=== PATIENT | male | born 1965 | race Asian ===

== ENCOUNTER 2023-12-31 12:40 | Emergency (ER) | payer OTHER, SELFPAY ==
[2023-12-31] VITALS (10 sets, daily range): BP systolic 114–145; BP diastolic 77–103; BMI 27.9
[2023-12-31] MEDS: NSS 1000 IV (13:18)
[2023-12-31 13:27] LABS: % Basophils 0.7 % (0-2); % Eosinophils 1.1 % (0-6); % Immature Granulocytes 0.6 % (0-0.5); % Lymphocytes 22.6 % (20.5-51.1); % Monocytes 5.8 % (1.7-9.3); % Neutrophils 69.2 % (42.2-75.2); Absolute Basophils 0.1 10^3/uL (0-0.2); Absolute Eosinophils 0.1 10^3/uL (0-0.7); Absolute Immature Granulocytes 0.1 10^3/uL (0-0.05); Absolute Monocytes 0.5 10^3/uL (0.1-0.6); Hematocrit 46.1 % (39.0-52.0); Hemoglobin 15.7 g/dL (13.0-18.0); Mean Corp Hgb Conc. 34.1 g/dL (33.0-37.0); Mean Corpuscular Hgb 31.3 pg (27.0-31.0); Mean Platelet Volume 8.7 fL (7.4-10.4); Nucleated Red Blood Cells % 0 % (-); Platelet Count 247 10^3/uL (130-400); Red Blood Cell Count 5.01 10^6/uL (4.70-6.10); Red Cell Dist. Width 12.9 % (11.5-14.5); White Blood Cell Count 8.7 10^3/uL (4.8-10.8)
[2023-12-31 13:39] LABS: ALT (SGPT) 22 U/L (0-50); AST (SGOT) 17 U/L (17-59); Albumin 3.7 g/dl (3.5-5.0); Alkaline Phosphatase 94 U/L (38-126); Blood Urea Nitrogen 19 mg/dl (9-20); Calcium 8.4 mg/dl (8.4-10.2); Carbon Dioxide 26 mmol/L (22-30); Chloride 103 mmol/L (98-107); Estimated Creatinine Clearance 68 ml/min; Glucose 154 mg/dl (70-99); Potassium 3.8 mmol/L (3.5-5.1); Sodium 137 mmol/L (135-145); Total Bilirubin 0.7 mg/dl (0.2-1.3); Total Protein 6.5 g/dl (6.3-8.2); eGFR > 60.00
[2023-12-31 13:53] LABS: Acetaminophen < 10 ug/ml (10-30); Salicylate < 1.0 mg/dl (2.0-20.0)
[2023-12-31 15:23] LABS: Amphetamines Positive (Negative); Barbiturates Negative (Negative); Benzodiazepines Negative (Negative); Buprenorphine Negative (Negative); Cocaine Negative (Negative); Marijuana Negative (Negative); Methadone Negative (Negative); Methamphetamines Positive (Negative); Opiates Negative (Negative); Phencyclidine Negative (Negative); Tricyclic Antidepressants Positive (Negative)
[2023-12-31 15:35] LABS: Fentanyl, Urine Negative (Negative)
[2023-12-31 16:13] LABS: Troponin I < 0.012 ng/ml
--- NOTE | 2023-12-31 16:26 | ED.GENMED ---
History of Present Illness
General
Chief Complaint: Overdose Unintentional
Source: patient and police
Exam Limitations: none
Time Seen by Provider: 12/31/23 14:36
Nursing documentation reviewed up to this point in time: agreed with
Travel History
Have you had any contact with someone who has COVID-19?: Unable to Answer
Do you have any symptoms of coronavirus? Fever > 100 degrees, chills, cough, shortness of breath, sore throat, loss of taste or smell, muscle aches, or headache?: Unable to Answer
History of Present Illness
History of Present Illness:
58-year-old male past medical history of psychiatric illness substance abuse presenting to the emergency department today after an episode where he was somewhat unresponsive at present otherwise at the felt all shortness of breath entire history was
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 Otherwise denies any chest pain fevers recent illness no abdominal pain
Review of Systems
Review of Systems
Allergies reviewed?: Yes
All Other Systems: ROS reviewed and negative except as documented in HPI and ROS
Phy Exam
Physical Exam
Physical Exam:
GENERAL: Alert , in no apparent distress
EYE: pupils equal and reactive
NECK: Supple, no significant adenopathy.
ENT: o/p clr, mmm.
CARDIAC: Regular rate and rhythm .
LUNGS: Clear breath sounds bilaterally, no acute respiratory distress, no wheezes/rales/rhonchi
ABDOMEN: Soft, without focal tenderness, no r/g, no cvat
NEUROLOGICAL: Alert and oriented, no focal neuro deficits of the 5 upper and lower extremity strength normal sensation palpated bilaterally normal finger-nose and no send no pronator drift
SKIN: Warm and dry, skin intact.
MUSCULOSKELETAL: No edema, well perfused.
PSYCH: Normal and appropriate interaction.
Course
Orders/Labs/Results
Orders:
Orders
12/31/23 12:50
EKG [Electrocardiogram (*1)] Urgent
Reason for Study: Other
Other Reason for Exam: overdose
12/31/23 12:51
EKG- Treatment ONCE
12/31/23 13:16
Acetaminophen Urgent
Complete Blood Count/With Diff Urgent
Comprehensive Metabolic Panel Urgent
Fentanyl, Urine Urgent
Salicylate Urgent
Urine Drug Abuse Screen Urgent
Date Specimen was Collected: 12/31/23
Time Specimen was Collected: 13:14
12/31/23 13:18
0.9% Sodium Chloride 1000 ml [Nss] 1,000 ml IV BOLUS
12/31/23 15:34
Chest [CR Chest - 2 Views ] Urgent
Comment:
Reason For Exam: sob
12/31/23 15:38
Troponin I Urgent
Abnormal Lab Results
12/31/23
13:16
MCH 31.3 H pg
(27.0-31.0)
Abs Immat Gran (auto) 0.1 H 10^3/uL
(0-0.05)
Immature Gran % 0.6 H %
(0-0.5)
Glucose 154 H mg/dl
(70-99)
Salicylates < 1.0 L mg/dl
(2.0-20.0)
Acetaminophen < 10 L ug/ml
(10-30)
Ur Tricyclics Screen Positive H
(Negative)
Ur Amphetamines Screen Positive H
(Negative)
U Methamphetamines Scrn Positive H
(Negative)
12/31/23 13:16
12/31/23 13:16
Vital Signs
Initial and Last Documented VS:
Initial Vital Signs
Pulse Ox
96
12/31/23 12:43
Last Documented Vital Signs
Temp Pulse Resp BP Pulse Ox
96.1 F L 63 13 120/81 98
12/31/23 12:58 12/31/23 14:30 12/31/23 14:30 12/31/23 14:00 12/31/23 14:30
MDM/Problems Addressed
MDM/Problems Addressed:
58-year-old male presenting to the emergency department today with concerns of an episode where he is not responding was given a dose of Narcan while at the present improved symptoms on arrival vital signs are normal temperature slightly low but
patient feels normal on exam. Patient 4 hours after Narcan administration without any acute likely. Patient's otherwise has a very comfortable while here in the ER labs obtained without acute troponin negative chest x-ray normal. Otherwise
cleared for incarceration.
*Critical Care Note
Total Time (30-74mins, 75-104mins- exclusive of procedures): Not Applicable
ED Attending Note
-
Portions of this chart may have been created with voice recognition software.� Occasional wrong word or��sound alike� substitutions may have occurred due to the inherent limitations of voice recognition software.
Discharge Plan
Departure
Patient Disposition: Longterm
Date of Disposition: 12/31/23
Time of Disposition: 16:28
Patient with high blood pressure during this ER visit?: No
Condition: Good
Covid-19: Not Applicable
Discharge Problem:
Mental status change resolved
Instructions: Substance Abuse
Prescriptions:
No Action
quetiapine 25 mg Tablet
25 mg PO DAILY
clonazepam 0.5 mg Tablet
0.5 mg PO HS
clonazepam 0.5 mg Tablet
0.5 mg PO BID
clonazepam 1 mg Tablet
1 mg PO BID
diphenhydramine HCl [Benadryl] 25 mg Capsule
25 mg PO BID
quetiapine 50 mg Tablet
50 mg PO HS
Referrals:
[facility] [Family Provider] -
Activity Restrictions/Additional Instructions:
You came to the emergency department today after an episode at the correctional facility. Here had a reassuring evaluation. Please follow-up closely with the doctors at the facility. Return to the emergency department for any worsening, new or
concerning symptoms.
Interventions
Interventions:
*Risk Screen - Suicide Last Done: 12/31/23 14:31
*General Assessment Last Done: 12/31/23 13:15
*Neglect/Abuse Screening Last Done: 12/31/23 13:15
ED- Fall Risk Assessment Last Done: 12/31/23 12:56
*ED COVID-19 Vaccine History Last Done: 12/31/23 12:51
ED- Cardiac Assessment Last Done: 12/31/23 12:51
ED- Neurological Assessment Last Done: 12/31/23 12:52
ED-Psychological Assessment Last Done: 12/31/23 13:13
ED- Pulmonary Assessment Last Done: 12/31/23 12:52
Discharge Date and Time
Print Language: ANGOLAN
== END 2023-12-31 17:27 ==
LOC: EMR 12:40
PROVIDERS: Emergency Medicine; Physician Assistant; EMERGENCY PHYSICIAN Emergency Medicine
DX: R41.82 Altered mental status, unspecified (principal); F19.10 Other psychoactive substance abuse, uncomplicated
CPT/HCPCS: 99285; 96360; 71046; 80053; 80143; 80179; 80306; 80307; 84484; 85025; 93005